=== PATIENT | male | born 1990 | race Hispanic/Latino ===

== ENCOUNTER 2021-05-15 22:40 | Emergency (ER) | payer SELFPAY ==
--- NOTE | 2021-05-16 00:42 | ER ---
Nurse's Notes [facility] Name: Ravin Doherty Age: 30 yrs Sex: Male : 1990 Arrival Date: 05/15/2021 Time: 22:42 Bed 20 Private MD: Diagnosis: Coronavirus infection, unspecified Presentation: 05/15 23:07 Chief complaint: Patient states: "I have covid, but today I felt short of breath, and ss my lungs feel hot in the afternoons.". Coronavirus screen: Client presents with at least one sign or symptom that may indicate coronavirus-19. Ebola Screen: Patient denies exposure to infectious person. No symptoms or risks identified at this time. Initial Sepsis Screen: Does the patient meet any 2 criteria? No. Patient's initial sepsis screen is negative. Does the patient have a suspected source of infection? No. Patient's initial sepsis screen is negative. Risk Assessment: Do you want to hurt yourself or someone else? Patient reports no desire to harm self or others. Onset of symptoms was May 10, 2021. 23:07 Method Of Arrival: Ambulatory ss 23:07 Acuity: SILVA 5 ss Historical: - Allergies: 23:08 No Known Allergies; ss - Home Meds: 23:08 None [Active]; ss - PMHx: 23:08 None; ss - PSHx: 23:08 None; ss - Immunization history:: Client reports having NOT received the Covid vaccine. - Social history:: Smoking status: Patient reports the use of cigarette tobacco products, smokes one-half pack cigarettes per day. Vital Signs: 23:07 BP 138 / 90; Pulse 78; Resp 16; Temp 97.8(TE); Pulse Ox 100% on R/A; Weight 114.76 kg; ss Height 5 ft. 7 in. (170.18 cm); Pain 0/10; 23:07 Body Mass Index 39.62 (114.76 kg, 170.18 cm) ED Course: 22:42 Patient arrived in ED. mr 23:08 Triage completed. ss 23:08 Arm band placed on right wrist. ss 23:09 Jason Coon NP is PHCP. pm1 23:09 Marli Reyna MD is Attending Physician. pm1 23:25 Chest Single View XRAY In Process Unspecified. EDMS Administered Medications: No medications were administered Outcome: 05/16 00:41 Discharge ordered by . pm1 02:07 Patient left the ED. em Signatures: Dispatcher [employer] EDChula Parks Edgar, RN RN Lashell Ace RN RN ss Jason Coon, VICE PRESIDENT QUALITY VICE PRESIDENT QUALITY pm1
--- NOTE | 2021-05-16 00:42 | EDPHYS ---
Physician Documentation [facility] Name: Ravin Doherty Age: 30 yrs Sex: Male : 1990 Arrival Date: 05/15/2021 Time: 22:42 Bed 20 Private MD: ED Physician Marli Reyna HPI: 05/15 23:15 This 30 yrs old Male presents to ER via Ambulatory with complaints of COVID+, pm1 Breathing Difficulty. 23:15 The patient or guardian reports cough, with no sputum, and shortness of breath. Onset: pm1 The symptoms/episode began/occurred today. Severity of symptoms: in the emergency department the symptoms are actually worse. Modifying factors: The symptoms are alleviated by nothing, the symptoms are aggravated by nothing. Associated signs and symptoms: Pertinent positives: fever, Pertinent negatives: chest pain, diarrhea, nausea, vomiting. The patient has not experienced similar symptoms in the past. The patient has not recently seen a physician. Patient with onset of cough and fever Saturday. Tested positive for Covid on Saturday. Patient reports onset of shortness of breath today. Historical: - Allergies: 23:08 No Known Allergies; ss - Home Meds: 23:08 None [Active]; ss - PMHx: 23:08 None; ss - PSHx: 23:08 None; ss - Immunization history:: Client reports having NOT received the Covid vaccine. - Social history:: Smoking status: Patient reports the use of cigarette tobacco products, smokes one-half pack cigarettes per day. ROS: 23:15 ENT: Negative for injury, pain, and discharge, Cardiovascular: Negative for chest pain, pm1 palpitations, and edema. 23:15 Abdomen/GI: Negative for abdominal pain, nausea, vomiting, diarrhea, and constipation, Back: Negative for injury and pain, MS/Extremity: Negative for injury and deformity, Skin: Negative for injury, rash, and discoloration, Neuro: Negative for headache, weakness, numbness, tingling, and seizure. 23:15 Constitutional: Positive for fever, Negative for poor PO intake. 23:15 Respiratory: Positive for cough, with no reported sputum, shortness of breath. 23:15 All other systems are negative. Exam: 23:15 Constitutional: This is a well developed, well nourished patient who is awake, alert, pm1 and in no acute distress. Head/Face: Normocephalic, atraumatic. 23:15 Skin: Warm, dry with normal turgor. Normal color with no rashes, no lesions, and no evidence of cellulitis. MS/ Extremity: Pulses equal, no cyanosis. Neurovascular intact. Full, normal range of motion. 23:15 Back: No spinal tenderness. No costovertebral tenderness. Full range of motion. 23:15 Cardiovascular: Exam negative for acute changes, Rate: normal, Rhythm: regular, Pulses: no pulse deficits are appreciated, Heart sounds: normal. 23:15 Respiratory: Exam negative for acute changes, respiratory distress, shortness of breath, Breath sounds: are clear throughout. 23:15 Abdomen/GI: Inspection: abdomen appears normal, Palpation: abdomen is soft and non-tender, in all quadrants. 23:15 Neuro: Exam negative for acute changes, Orientation: is normal, Mentation: is normal, Motor: is normal, moves all fours. Vital Signs: 23:07 BP 138 / 90; Pulse 78; Resp 16; Temp 97.8(TE); Pulse Ox 100% on R/A; Weight 114.76 kg; ss Height 5 ft. 7 in. (170.18 cm); Pain 0/10; 23:07 Body Mass Index 39.62 (114.76 kg, 170.18 cm) ss MDM: 23:10 Patient medically screened. pm1 23:18 Data reviewed: vital signs. Data interpreted: Pulse oximetry: on room air is 100 %. pm1 Interpretation: normal. 05/16 00:37 Counseling: I had a detailed discussion with the patient and/or guardian regarding: the pm1 historical points, exam findings, and any diagnostic results supporting the discharge/admit diagnosis, radiology results, the need for outpatient follow up, to return to the emergency department if symptoms worsen or persist or if there are any questions or concerns that arise at home. 05/15 23:14 Order name: Chest Single View XRAY pm1 Administered Medications: No medications were administered Disposition: 19:14 Co-signature as Attending Physician, Marli Reyna MD I agree with the assessment ma2 and plan of care. PA/YOUTH SPECIALIST's history reviewed, patient interviewed, and examined. I agree with assessment and care plan and confirm the diagnosis (es) above. Attestation: The patient's history, exam findings, diagnostics, and a summary of any interventions or procedures was reviewed in detail with Jason Coon YOUTH SPECIALIST. Disposition Summary: 05/16/21 00:41 Discharge Ordered Location: Home pm1 Problem: new pm1 Symptoms: have improved pm1 Condition: Stable pm1 Diagnosis - Coronavirus infection, unspecified pm1 Followup: pm1 - With: Emergency Department - When: As needed - Reason: Worsening of condition Followup: pm1 - With: Private Physician - When: 2 - 3 days - Reason: Recheck today's complaints, Continuance of care, Re-evaluation by your physician Discharge Instructions: - Discharge Summary Sheet pm1 - COVID-19 pm1 - COVID-19 Frequently Asked Questions pm1 - 10 Things You Can Do to Manage Your COVID-19 Symptoms at Home - [facility] pm1 - COVID-19: Quarantine vs. Isolation - [facility] pm1 Forms: - Medication Reconciliation Form pm1 - Thank You Letter pm1 - Antibiotic Education pm1 - Prescription Opioid Use pm1 Signatures: Dispatcher [employer] Lashell De León RN RN ss Marinas, Patrick, NELLY YOUTH SPECIALIST pm1 Marli Reyna MD MD ma2
[2021-05-16 02:12] VITALS: BP 138/90; TEMP 97.8; O2SAT 100
--- NOTE | 2021-05-16 08:38 | RAD REPORT ---
EXAM DESCRIPTION: Vic Single View05/15/2021 11:25 pm CLINICAL HISTORY: Shortness of breath COMPARISON: none FINDINGS: The lungs appear clear of acute infiltrate. The heart is normal size IMPRESSION: No acute abnormalities displayed
== END 2021-05-16 02:07 | disposition home or self-care (01) ==
LOC: ER 22:40
DX: U07.1 COVID-19 (principal); F17.210 Nicotine dependence, cigarettes, uncomplicated
CPT/HCPCS: 71045; 99282